=== PATIENT | female | born 1930 | race Two or more races ===

== ENCOUNTER 2018-01-23 23:35 | Inpatient (IN) | payer MEDICARE, OTHER ==
[~2018-01-23] VITALS: Ht 167.6 cm; Wt 52.2 kg
[2018-01-23] MEDS ORDERED: LORAZEPAM INJ 2 MG/ML VIAL ONE ×2 (23:39→23:43)
[2018-01-23] MEDS ORDERED: LEVETIRACETAM (500MG) 500 MG/5 ML VIAL IV ONE (23:43)
[2018-01-24] MEDS ORDERED: LORAZEPAM INJ 2 MG/ML VIAL IVP ONE
[2018-01-24] MEDS ORDERED: LEVETIRACETAM (500MG) 500 MG in IV NS 0.9% 100 ML IV ONE ×2
[2018-01-24 00:04] LABS: BASOPHILS % (AUTO) 0.2 % (0.0-2.0); HEMATOCRIT 36 % (33-45); HEMOGLOBIN 11.3 g/dL (11.5-14.8); LYMPHOCYTES # (AUTO) 1.9 /CMM (0.8-4.8); LYMPHOCYTES % (AUTO) 13.8 % (20.0-44.0); MEAN CORPUSCULAR HEMOGLOBIN 23 PG (26.0-33.0); MEAN CORPUSCULAR HGB CONC 31 g/dl (31.0-36.0); MEAN CORPUSCULAR VOLUME 74 fL (82-100); MONOCYTES # (AUTO) 1.1 /CMM (0.1-1.30); MONOCYTES % (AUTO) 7.7 % (2.0-12.0); NEUTROPHILS # (AUTO) 10.8 /CMM (1.8-8.9); NEUTROPHILS % (AUTO) 78.3 % (43.0-81.0); PLATELET COUNT (AUTO) 276 /CMM (150-450); RDW COEFFICIENT OF VARIATION 19.9 (11.5-15.0); WHITE BLOOD COUNT (AUTO) 13.8 K/uL (4.3-11.0)
[2018-01-24 00:21] LABS: INR 1.19 (0.87-1.13)
[2018-01-24 00:23] LABS: CALCIUM, SERUM 8.9 mg/dL (8.5-10.1); CARBON DIOXIDE 20 mmol/L (21-32); CHLORIDE 106 mmol/L (98-107); CREATININE 1.1 mg/dL (0.6-1.3); GLUCOSE 111 mg/dL (74-106); POTASSIUM 3.9 mmol/L (3.5-5.1); SODIUM SERUM 139 mmol/L (136-145); UREA NITROGEN, BLOOD 24 mg/dL (7-18)
[2018-01-24 00:40] LABS: ALANINE AMINOTRANSFERASE 15 U/L (12-78); ALBUMIN 2.7 g/dL (3.4-5.0); ALCOHOL, BLOOD < 3 mg/dL (0-0); ALKALINE PHOSPHATASE 61 U/L (46-116); ASPARTATE AMINOTRANSFERASE 18 U/L (15-37); BILIRUBIN,DIRECT 0.1 mg/dL (0.0-0.2); BILIRUBIN,TOTAL 0.3 mg/dL (0.2-1.0); TOTAL PROTEIN, SERUM 7.9 g/dL (6.4-8.2)
[2018-01-24] MEDS ORDERED: CEFTRIAXONE 1 G in IV D5W 50 ML IV ONE (01:30)
[2018-01-24] MEDS ORDERED: CEFTRIAXONE 1GM BAG (ER ONLY) 50 ML IV ONE (01:39)
[2018-01-24 03:12] VITALS: BP 152/78
[2018-01-24] MEDS ORDERED: FOLI100T PO (03:27)
[2018-01-24] MEDS ORDERED: FAMO20TA8 PO (03:27)
[2018-01-24] MEDS ORDERED: DULO30CA2 PO (03:27)
[2018-01-24] MEDS ORDERED: CALC500T51 PO (03:27)
[2018-01-24] MEDS ORDERED: MEMA10TA PO (03:27)
[2018-01-24] MEDS ORDERED: HYDR-552 PO (03:27)
[2018-01-24] MEDS ORDERED: ASCO-340 PO (03:27)
[2018-01-24] MEDS ORDERED: ONDA4TAB8 PO (03:27)
[2018-01-24] MEDS ORDERED: AMLO2.5T2 PO (03:27)
[2018-01-24] MEDS ORDERED: CYAN10009 PO (03:27)
[2018-01-24] MEDS ORDERED: DONE10TA11 PO (03:27)
[2018-01-24] MEDS ORDERED: MAGN400O21 PO (03:27)
[2018-01-24] MEDS ORDERED: MEGE400O4 PO (03:27)
[2018-01-24] MEDS ORDERED: QUET25TA PO (03:27)
[2018-01-24] MEDS ORDERED: POLY17PO4 PO (03:27)
[2018-01-24] MEDS ORDERED: FERR325T23 PO (03:27)
[2018-01-24] MEDS ORDERED: NUT.237L67 PO (03:27)
[2018-01-24] MEDS ORDERED: HYDR30CR79 RC (03:27)
[2018-01-24] MEDS ORDERED: METO25TA6 PO (03:27)
[2018-01-24] MEDS ORDERED: TYL2T PO (03:27)
[2018-01-24] MEDS ORDERED: DOCU100C36 PO (03:27)
[2018-01-24] MEDS ORDERED: FOLI1TAB16 PO (03:27)
[2018-01-24] MEDS ORDERED: NA P133E RC (03:27)
[2018-01-24] MEDS ORDERED: CYAN10009 IM (03:27)
[2018-01-24] MEDS ORDERED: ALEN70TA3 PO (03:27)
[2018-01-24] MEDS ORDERED: NUTR237L18 PO (03:27)
[2018-01-24] MEDS ORDERED: SENN-167 PO (03:27)
[2018-01-24] MEDS ORDERED: EPOE3000 SQ (03:27)
[2018-01-24] MEDS ORDERED: ONDANSETRON HCL/PF 4 MG/2 ML VIAL IV PRN (04:00)
[2018-01-24] MEDS ORDERED: LEVETIRACETAM (500MG) 500 MG in IV NS 0.9% 100 ML IV SCH (04:00)
[2018-01-24] MEDS ORDERED: LORAZEPAM INJ 2 MG/ML VIAL IV PRN (04:00)
[2018-01-24] MEDS: IV D5/ 0.9% NACL 1,000 ML IV PRN ×2 (04:46→20:10)
[2018-01-24] MEDS: PANTOPRAZOLE 40 MG VIAL IV SCH (04:46)
[2018-01-24 08:00] VITALS: BP 151/86
[2018-01-24] MEDS: LEVETIRACETAM (500MG) 500 MG in IV NS 0.9% 100 ML IV SCH ×2 (08:55→21:13)
[2018-01-24] MEDS: Z GUARD REMEDY 2 OZ OINT TP SCH (11:30)
[2018-01-24] MEDS ORDERED: Z GUARD REMEDY 2 OZ OINT TP PRN (11:30)
[2018-01-24 16:00] VITALS: BP 147/79
[2018-01-24 20:00] VITALS: BP 155/74
[2018-01-24] MEDS: CEFTRIAXONE 1 G in IV D5W 50 ML IV SCH (22:09)
[2018-01-25] MEDS: PANTOPRAZOLE 40 MG VIAL IV SCH (03:55)
[2018-01-25] MEDS ORDERED: CEFTRIAXONE 1 G VIAL IV SCH (04:00)
[2018-01-25 08:00] VITALS: BP 129/44
[2018-01-25] MEDS: LEVETIRACETAM (500MG) 500 MG in IV NS 0.9% 100 ML IV SCH ×2 (08:53→20:31)
[2018-01-25] MEDS: Z GUARD REMEDY 2 OZ OINT TP SCH (08:54)
[2018-01-25] MEDS: IV D5/ 0.9% NACL 1,000 ML IV PRN (15:02)
[2018-01-25 15:51] VITALS: BP 128/63
[2018-01-25] MEDS ORDERED: MORPHINE SULFATE SOLN CONCENTRATED 20 MG/ML PO PRN (19:00)
[2018-01-25] MEDS ORDERED: MORPHINE SULFATE INJ 4 MG/ML DISP.SYRIN IV PRN (19:00)
[2018-01-25 20:00] VITALS: BP_SYST 160; BP_SYST 162; BP_DIAS 87
[2018-01-25] MEDS: CEFTRIAXONE 1 G in IV D5W 50 ML IV SCH (22:08)
[2018-01-26] MEDS: PANTOPRAZOLE 40 MG VIAL IV SCH (03:03)
[2018-01-26 08:00] VITALS: BP 148/88
[2018-01-26] MEDS: Z GUARD REMEDY 2 OZ OINT TP SCH (08:33)
[2018-01-26] MEDS: LEVETIRACETAM (500MG) 500 MG in IV NS 0.9% 100 ML IV SCH (08:34)
== END 2018-01-26 12:55 | DRG 100 ==
LOC: ER 23:37 → TELE 01-24 02:46 → MED 01-24 09:02
PROVIDERS: ADMIT Internal Medicine; ATTEND Internal Medicine
DX: G40.909 Epilepsy, unspecified, not intractable, without status epilepticus (principal); E43 Unspecified severe protein-calorie malnutrition; G81.91 Hemiplegia, unspecified affecting right dominant side; D49.6 Neoplasm of unspecified behavior of brain; D64.9 Anemia, unspecified; R13.10 Dysphagia, unspecified; E86.0 Dehydration; N39.0 Urinary tract infection, site not specified; J98.11 Atelectasis; Z68.1 Body mass index [BMI] 19.9 or less, adult; Z66 Do not resuscitate; Z51.5 Encounter for palliative care; D72.829 Elevated white blood cell count, unspecified; K21.9 Gastro-esophageal reflux disease without esophagitis; Z85.841 Personal history of malignant neoplasm of brain; M81.0 Age-related osteoporosis without current pathological fracture; F32.9 Major depressive disorder, single episode, unspecified; Z86.718 Personal history of other venous thrombosis and embolism; K64.9 Unspecified hemorrhoids; M85.80 Other specified disorders of bone density and structure, unspecified site; Z74.01 Bed confinement status; F01.50 Vascular dementia, unspecified severity, without behavioral disturbance, psychotic disturbance, mood disturbance, and anxiety
CPT/HCPCS: 36415; 70450-TC; 71045-TC; 80048-TC; 80076-TC; 85025-TC; 85730-TC; 87081-TC; 92526; 92611-TC; 94799-TC; A4606; C9113; G0480; J0696; J1953; J2060; J7030; J7042; J7060; Z7610